=== PATIENT | male | born 1975 | race Caucasian/White ===

== ENCOUNTER → 2021-05-25 13:29 | Outpatient (BNVA) | payer OTHER, BC, SELFPAY | PROVIDERS: Family Provider Family Medicine; PCP Family Medicine; Visit Provider Nurse Practitioner | DX: M54.9 Dorsalgia, unspecified (principal) | CPT/HCPCS: 81000 ==

== ENCOUNTER 2025-05-07 12:17 | Emergency (ER) | payer OTHER, BC, SELFPAY ==
[2025-05-07 12:20] VITALS: BP 137/94; PULSE 63; RESP 18; TEMP 36.5; O2SAT 97; BMI 41.0
--- OUTSIDE RECORDS SUMMARY | 2025-05-07 12:22 | XMS_ITS | Encounter Summary ---
Author Organization [facility] Address [address] [place] [address] Care Team Providers Care Tool And Cutter Grinder Name Role Phone Kwabena Montaño MD Primary Care Provi jason Encounter Details Date Type Department Care Team (Late st Contact Info) Description 02/18/2017 Lab Requisition [facility] Services [address] [place] [address] Horacio Carcamo, [address] [address] Social History Tobacco Use Types Packs/Day Years Used Date Smoking Tobacco: Former Smokeless Tobacco: Never Alcohol Use Standard Drinks/Week Comments No 0 (1 standard drink = 0.6 oz pur e alcohol) Sex and Gender Information Value Date Recorded Sex Assigned at Not on file Legal Sex Male 3:34 PM CDT Gender Identity Not on file Sexual Orientation Not on file documented as of this encounter Plan of Treatment Not on file documented as of this encounter Procedures Procedure Name Priority Date/Time Associated Diagnosis Comments CBC WITH DIFFERENTIAL Routine 02/18/2017 6:42 AM CDT TSH Routine 02/18/2017 6:42 AM CDT HEMOGLOBIN A1C Routine 02/18/2017 6:42 AM CDT LIPID PANEL Routine 02/18/2017 6:42 AM CDT COMPREHENSIVE METABOLIC PANEL Routine 02/18/2017 6:42 AM CDT documented in this encounter Results * HEMOGLOBIN A1C (02/18/2017 6:42 AM CDT) [facility] HEMOGLOBIN A1C 5.8 4.0 - 6.0 % 02/18/2017 11:15 AM CDT [facility] EST. AVG GLUCOSE, A1C 120 mg/dL 02/18/2017 11:15 AM CDT [facility] Blood Collection / Unknown 02/18/2017 6:42 AM CDT 02/18/2017 9:40 AM CDT [facility] - 02/18/2017 11:15 AM CDT Test performed on FOODITY instrumentation using HPLC methodology Horacio Carcamo DO CHEMISTRY ORDERABLES Final R esult [facility] CLIA# [id number] [address] [place] [address] * (ABNORMAL) CBC WITH DIFFERENTIAL (02/18/2017 6:42 AM CDT) [facility] WBC 9.0 4.5 - 11.0 K/uL 02/18/2017 10:14 AM CDT [facility] RBC 4.97 4.60 - 6.20 M/uL 02/18/2017 10:14 AM CDT [facility] HEMOGLOBIN 15.2 14.0 - 18.0 g/dL 02/18/2017 10:14 AM CDT [facility] HEMATOCRIT 45.0 41.0 - 53.0 % 02/18/2017 10:14 AM CDT [facility] MCV 90.5 84.0 - 103.0 fL 02/18/2017 10:14 AM CDT [facility] MCH 30.6 27.0 - 34.0 pg 02/18/2017 10:14 AM [facility] MCHC 33.8 30.0 - 35.0 g/dL 02/18/2017 10:14 AM [facility] RDW 12.7 11.0 - 14.5 % 02/18/2017 10:14 AM [facility] RDW-STDEV 41.5 37.0 - 54.0 fL 02/18/2017 10:14 AM [facility] PLATELETS 207 140 - 440 K/uL 02/18/2017 10:14 AM [facility] MPV 11.1 8.9 - 12.8 fL 02/18/2017 10:14 AM [facility] NEUTROPHILS 49 42 - 75 % 02/18/2017 10:14 AM [facility] LYMPHOCYTES 38 24 - 44 % 02/18/2017 10:14 AM [facility] MONOCYTES 10 2 - 10 % 02/18/2017 10:14 AM [facility] EOSINOPHILS 3 0 - 7 % 02/18/2017 10:14 AM [facility] BASOPHILS 1 0 - 1 % 02/18/2017 10:14 AM [facility] IMMATURE GRANULOCYTES 1 0 - 2 % 02/18/2017 10:14 AM [facility] NEUTROPHIL ABSOLUTE 4.39 2.00 - 8.00 K/uL 02/18/2017 10:14 AM [facility] LYMPHOCYTE ABSOLUTE 3.41 1.20 - 4.00 K/uL 02/18/2017 10:14 AM [facility] [employer] [facility] MONOCYTE ABSOLUTE 0.86(H) 0.10 - 0.60 K/uL 02/18/2017 10:14 AM [facility] [employer] [facility] EOSINOPHIL ABSOLUTE 0.24 0.00 - 0.70 K/uL 02/18/2017 10:14 AM [facility] BASOPHILS ABSOLUTE 0.06 0.00 - 0.20 K/uL 02/18/2017 10:14 AM [facility] IMMATURE GRANULOCYTES ABSOLUTE 0.05 0.00 - 0.10 K/uL 02/18/2017 10:14 AM CDT [facility] Blood Collection / Unknown 02/18/2017 6:42 AM CDT 02/18/2017 9:40 AM CDT us Horacio Carcamo DO HEMATOLOGY ORDERABLES Final Result Performing Organization Address [facility] Co de Phone Number [facility] CLIA# [id number] [address] [place] [address] * TSH (02/18/2017 6:42 AM CDT) TSH 3.57 0.36 - 3.74 uIU/mL 02/18/2017 10:32 AM CDT [facility] Blood Collection / Unknown 02/18/2017 6:42 AM CDT 02/18/2017 9:40 AM CDT us Horacio Carcamo DO CHEMISTRY ORDERABLES Final R esult Performing Organization Address [facility] Co de Phone Number [facility] CLIA# [id number] [address] [place] [address] * (ABNORMAL) LIPID PANEL (02/18/2017 6:42 AM CDT) CHOLESTEROL 192 <200 mg/dL 02/18/2017 10:32 AM CDT [facility] TRIGLYCERIDE 313(H) <150 mg/dL 02/18/2017 10:32 AM T [facility] HDL 39(L) 40 - 59 mg/dL 02/18/2017 10:32 AM T [facility] LDL CALCULATED 90 <100 mg/dL 02/18/2017 10:32 AM CDT [facility] NON-HDL CHOLESTEROL 153(H) <130 mg/dL 02/18/2017 10:32 AM T [facility] Blood Collection / Unknown 02/18/2017 6:42 AM CDT 02/18/2017 9:40 AM CDT Narrative [facility] - 02/18/2017 10:32 AM CDT TOTAL CHOLESTEROL mg/dL Desirable <200 Borderline high 200-239 High >=240 TRIGLYCERIDES mg/dL Normal <150 Borderline high 150-199 High 200-499 Very high >=500 HDL CHOLESTEROL mg/dL Low <40 Normal 40-59 Desirable >=60 NON HDL CHOLESTEROL mg/dL Optimal <130 Near Optimal 130-159 Borderline High 160-189 Very High >=190 Calculated LDL mg/dL Optimal <100 Near Optimal 100-129 Borderline High 130-159 High 160-189 Very High >=190 ATPIII Guidelines Reference Ranges for Lipid Panels (NCEP/AMA) us Horacio Carcamo DO CHEMISTRY ORDERABLES Final R esult [facility] CLIA# [id number] [facility] [place] [address] * COMPREHENSIVE METABOLIC PANEL (02/18/2017 6:42 AM CDT) SODIUM 138 136 - 145 mmol/L 02/18/2017 10:32 AM CDT [facility] POTASSIUM 4.2 3.5 - 5.1 mmol/L 02/18/2017 10:32 AM T [facility] CHLORIDE 102 98 - 107 mmol/L 02/18/2017 10:32 AM T [facility] CO2 29 21 - 32 mmol/L 02/18/2017 10:32 AM CDT [facility] CALCIUM 8.7 8.4 - 10.1 mg/dL 02/18/2017 10:32 AM T [facility] BUN 16 7 - 18 mg/dL 02/18/2017 10:32 AM T [facility] CREATININE 1.28 0.70 - 1.30 mg/dL 02/18/2017 10:32 AM T [facility] GLUCOSE 106 74 - 106 mg/dL 02/18/2017 10:32 AM T [facility] TOTAL PROTEIN 7.6 6.4 - 8.2 g/dL 02/18/2017 10:32 AM [facility] ALBUMIN 4.0 3.4 - 5.0 g/dL 02/18/2017 10:32 AM [facility] BILIRUBIN TOTAL 0.5 0.2 - 1.0 mg/dL 02/18/2017 10:32 AM [facility] ALKALINE PHOSPHATASE 94 45 - 117 U/L 02/18/2017 10:32 AM [facility] AST 18 15 - 37 U/L 02/18/2017 10:32 AM [facility] ALT 33 13 - 61 U/L 02/18/2017 10:32 AM [facility] GFR >60 >=60 mL/min/1.7 3 sq meter 02/18/2017 10:32 AM [facility] Comment: eGFR has not been validated for use in the elderly (> 70 years of age), women, patients with serious co-morbid conditions, or persons with extremes of body size or muscle mass and should also be interpreted with caution in patients with acute kidney failure, dialysis dependent patients, patients reporting exceptional dietary intake (e.g. vegetarian diet, high protein diets, creatine supplementation), and patients with severe liver disease. Based on National Kidney Disease Education Program If patient is , please refer to the GFR result. GFR, >60 >=60 mL/min/1.7 3 sq meter 02/18/2017 10:32 AM [facility] ANION GAP 7 4 - 30 mmol/L 02/18/2017 10:32 AM [facility] Blood Collection / Unknown 02/18/2017 6:42 AM CDT 02/18/2017 9:40 AM CDT us Horacio Carcamo DO CHEMISTRY ORDERABLES Final R esult [facility] CLIA# [id number] [facility] [place] [address] documented in this encounter Visit Diagnoses Not on filedocumented in this encounter Care Teams Tool And Cutter Grinder Relationship Specialty Start Date End Date Kwabena Montaño MD PCP - General Internal Medicine 03/07/15 documented as of this encounter
--- OUTSIDE RECORDS SUMMARY | 2025-05-07 12:22 | XMS_ITS | Clinical Summary ---
Author Organization [facility] Address [address] [place] [address] Care Team Providers Care Suppression Crew Leader Name Role Phone Kwabena Montaño MD Primary Care Provi jason Allergies No known active allergies Medications metFORMIN (GLUCOPHAGE) 500 mg tablet Take 500 mg by mouth daily with breakfast. Active levothyroxine 137 mcg tablet Take 137 mcg by mouth daily upholsterer inside. Active omeprazole (PRILOSEC) 40 mg Capsule, Delayed Release(E.C.)Indica tions:Gastroesophag eal reflux disease without esophagitis Take 1 Capsule (40 mg) by mouth daily. 30 Capsule 1 5 Active atorvastatin (LIPITOR) 20 mg tabletIndications:M ixed hyperlipidemia Take 1 Tablet (20 mg) by mouth Daily LATE. 30 Tablet 5 5 Active Active Problems Problem Noted Date Diagnosed Date Morbid obesity with BMI of 40.0-44.9, adult 02/23 Impaired glucose tolerance 03/08/2015 Hypothyroidism due to acquired atrophy of thyroi d 03/08/2015 Essential hypertension 03/08/2015 Gastroesophageal reflux disease without esophagi tis 03/07/2015 Mixed hyperlipidemia 03/07/2015 Social History Tobacco Use Types Packs/Day Years Used Date Smoking Tobacco: Former Smokeless Tobacco: Never Tobacco Cessation:Counseling Given: Yes Alcohol Use Standard Drinks/Week Comments No 0 (1 standard drink = 0.6 oz pur e alcohol) Sex and Gender Information Value Date Recorded Sex Assigned at Not on file Legal Sex Male 3:34 PM CDT Gender Identity Not on file Sexual Orientation Not on file Last Filed Vital Signs Vital Sign Reading Time Taken Comments Blood Pressure 134/82 03/07/2015 3:19 PM CDT Pulse 84 03/07/2015 3:19 PM CDT Temperature - - Respiratory Rate - - Oxygen Saturation - - Inhaled Oxygen Concentration - - Weight 141.1 kg (311 lb) 03/07/2015 3:19 PM CDT Height 185.4 cm (6' 1 ) 03/07/2015 3:19 PM CDT Body Mass Index 41.03 03/07/2015 3:19 PM CDT Plan of Treatment Health Maintenance Due Date Last Done Comments DTAP/TDAP/TD VACCINES (1 - Tdap) 1994 HEPATITIS B VACCINES (1 of 3 - 19+ 3-dose series) 1994 COLORECTAL SCREENING 2020 Colorectal Cancer Screening 2020 FIT-DNA Q 3 years 2020 FIT/FOBT Q 1 year 2020 Flex Sig/CT Colonography Q 5 years 2020 Pre-Diabetes and Diabetes Screening 02/20/2023 02/21/2020, 02/18/2017, 02/01/2015 INFLUENZA VACCINE (#1) 2024 Preventative Visit- Commercial Completed 04/04/2025 Procedures Procedure Name Priority Date/Time Associated Diagnosis Comments HEMOGLOBIN A1C Routine 02/21/2020 7:49 AM CDT from Last 3 Months or Most Recently Relevant to Health Maintenance Results * (ABNORMAL) HEMOGLOBIN A1C (02/21/2020 7:49 AM CDT) HEMOGLOBIN A1C 6.0(H) <=5.6 % 02/22/2020 11:19 AM CDT [facility] [employer] [facility] EST. AVG GLUCOSE, A1C 126 mg/dL 02/22/2020 11:19 AM CDT [facility] Blood Collection / Unknown 02/21/2020 7:49 AM CDT 02/21/2020 4:12 PM CDT Narrative [facility] [employer] [facility] - 02/22/2020 11:19 AM CDT HGB A1C INTERPRETATION NORMAL: <5.7% PRE-DIABETES: 5.7 - 6.4% DIABETES: 6.5% OR GREATER Horacio Carcamo DO CHEMISTRY ORDERABLES Final R esult [facility] [address] [place], [place] [address] from Last 3 Months or Most Recently Relevant to Health Maintenance Insurance [employer] Care Teams Suppression Crew Leader Relationship Specialty Start Date End Date Kwabena Montaño MD PCP - General Internal Medicine 03/07/15
--- OUTSIDE RECORDS SUMMARY | 2025-05-07 12:23 | XMS_ITS | Clinical Summary ---
Author Organization [facility] Address [address] [place]: Epic Prelude ADT [place] [address] Care Team Providers Care Accounts Payable Specialist Name Role Phone Hari Clifton MD Primary Care Provider [phone] Allergies No known active allergies Medications levothyroxine 137 mcg tabletIndications:H ypothyroidism due to acquired atrophy of thyroid Take 1 Tablet (137 mcg) by mouth daily in the morning. 100 Tablet 3 5 Active atorvastatin (LIPITOR) 20 mg tabletIndications:M ixed hyperlipidemia Take 1 Tablet (20 mg) by mouth late in the day. 100 Tablet 3 5 Active cholecalciferol 1,250 mcg (50,000 unit) CapsuleIndications: Vitamin D deficiency Take 1 Capsule (50,000 Units) by mouth every 7 days. 12 Capsule 3 5 Active Active Problems Problem Noted Date Diagnosed Date Vitamin D deficiency 04/04/2025 Prediabetes 04/04/2025 Impaired glucose tolerance 03/08/2015 Hypothyroidism due to acquired atrophy of thyroi d 03/08/2015 Essential hypertension 03/08/2015 Gastroesophageal reflux disease without esophagi tis 03/07/2015 Mixed hyperlipidemia 03/07/2015 Resolved Problems Problem Noted Date Diagnosed Date Resolved Date Morbid obesity with BMI of 40.0-44.9, adult 03/08/2015 04/04/2025 Encounters Date Type Department Care Team Description 05/01/2025 Results Follow-Up [facility] [address] [phone] Hari Clifton MD COLON CANCER SCREEN, STOOL DNA 04/04/2025 1:00 PM METAL BALER Office Visit [address] [phone] Hari Clifton MD Annual physical exam (Primary Dx); Prediabetes; Mixed hyperlipidemia; Essential hypertension; Hypothyroidism due to acquired atrophy of thyroid; Vitamin D deficiency; Encounter for colorectal cancer screening 03/28/2025 Orders Only [address] [phone] Hari Clifton MD Vitamin D deficiency (Primary Dx); Hypothyroidism due to acquired atrophy of thyroid; Mixed hyperlipidemia from Last 3 Months Social History Tobacco Use Types Packs/Day Years Used Date Smoking Tobacco: Former Passive Smoke Exposure: Past Smokeless Tobacco: Never Tobacco Cessation:Counseling Given: Not Answered Alcohol Use Standard Drinks/Week Comments No 0 (1 standard drink = 0.6 oz pur e alcohol) Sex and Gender Information Value Date Recorded Sex Assigned at Not on file Legal Sex Male 9:13 AM METAL BALER Gender Identity Not on file Sexual Orientation Not on file Last Filed Vital Signs Vital Sign Reading Time Taken Comments Blood Pressure 132/82 04/04/2025 1:07 PM METAL BALER Pulse 74 04/04/2025 1:07 PM METAL BALER Temperature 36.9 C (98.5 F) 04/04/2025 1:07 PM METAL BALER Respiratory Rate 14 05/13/2024 3:00 PM METAL BALER Oxygen Saturation 99% 04/04/2025 1:07 PM METAL BALER Inhaled Oxygen Concentration - - Weight 140.1 kg (308 lb 12.8 oz) 04/04/2025 1:07 PM METAL BALER Height 188 cm (6' 2 ) 04/04/2025 1:07 PM METAL BALER Body Mass Index 39.65 04/04/2025 1:07 PM METAL BALER Plan of Treatment Upcoming Encounters Date Type Department Care Team (Late st Contact Info) Description 04/10/2026 1:40 PM METAL BALER Office Visit [address] [phone] Hari Clifton MD [address] [place] [phone] Health Maintenance Due Date Last Done Comments DTAP/TDAP/TD VACCINES (1 - Tdap) 1994 HEPATITIS B VACCINES (1 of 3 - 19+ 3-dose series) 1994 COLORECTAL SCREENING 2020 FIT/FOBT Q 1 year 2020 Flex Sig/CT Colonography Q 5 years 2020 INFLUENZA VACCINE (#1) 2024 COVID-19 Vaccine (3 2024-2 6 season) 2025 08/16/2020, 07/19/2020 Pre-Diabetes and Diabetes Screening 01/28/2028 01/27/2025, 08/11/2024, 02/04/2024, Additional history exists Colorectal Cancer Screening 04/25/2028 FIT-DNA Q 3 years 04/25/2028 04/25/2025 Preventative Visit- Commercial Completed 04/04/2025 Procedures Procedure Name Priority Date/Time Associated Diagnosis Comments COLON CANCER SCREEN, STOOL DNA Routine 04/25/2025 12:50 AM METAL BALER Encounter for colorectal cancer screening HEMOGLOBIN A1C Routine 01/27/2025 10:01 AM CDT Routine general medical examination at a health care facility from Last 3 Months or Most Recently Relevant to Health Maintenance Results * COLON CANCER SCREEN, STOOL DNA (04/25/2025 12:50 AM METAL BALER) COLOGUARD RESULT Negative Negative [facility] Comment: The Cologuard (TM) test was performed on this specimen. NEGATIVE TEST RESULT. A negative Cologuard result indicates a low likelihood that a colorectal cancer (CRC) or advanced adenoma (adenomatous polyps with more advanced pre-malignant features) is present. The chance that a person with a negative Cologuard test has a colorectal cancer is less than 1 in 1500 (negative predictive value >99.9%) or has an advanced adenoma is less than 5.3% (negative predictive value 94.7%). These data are based on a prospective cross-sectional study of 10,000 individuals at average risk for colorectal cancer who were screened with both Cologuard and colonoscopy. (Nehal Eason al, N Engl J Med 2014;370(14):0406-7802) The normal value (reference range) for this assay is negative. COLOGUARD RE-SCREENING RECOMMENDATION: Periodic colorectal cancer screening is an important part of preventive healthcare for asymptomatic individuals at average risk for colorectal cancer. Following a negative Cologuard result, the [place] Cancer Society and U.S. Multi-Society Task Force screening guidelines recommend a Cologuard re-screening interval of 3 years. References: [place] [employer] Guideline for Colorectal Cancer Screening: https://www.cancer.org/cancer/ebwlf-kjmhga-xtpugh/qstswljma-tsxssfixf-zvaafyh/ac s-rec ommendations.html.; Meliton OCONNOR, Charlotte VELAZCO, Amanda RodríguezK, Colorectal Cancer Screening: Recommendations for Physicians and Patients from the U.S. Multi-Society Task Force on Colorectal Cancer Screening , Am J Gastroenterology 2017; 112:5178-4851. TEST DESCRIPTION: Composite algorithmic analysis of stool DNA-biomarkers with hemoglobin immunoassay. Quantitative values of individual biomarkers are not reportable and are not associated with individual biomarker result reference ranges. Cologuard is intended for colorectal cancer screening of adults of either sex, 45 years or older, who are at average-risk for colorectal cancer (CRC). Cologuard has been approved for use by the U.S. FDA. The performance of Cologuard was established in a cross sectional study of average-risk adults aged 50-84. Cologuard performance in patients ages 45 to 49 years was estimated by sub-group analysis of near-age groups. Colonoscopies performed for a positive result may find as the most clinically significant lesion: colorectal cancer [4.0%], advanced adenoma (including sessile serrated polyps greater than or equal to 1cm diameter) [20%] or non- advanced adenoma [31%]; or no colorectal neoplasia [45%]. These estimates are derived from a prospective cross-sectional screening study of 10,000 individuals at average risk for colorectal cancer who were screened with both Cologuard and colonoscopy. (Nehal Franklin, N Engl J Med 2014;370(14):2293-0880.) Cologuard may produce a false negative or false positive result (no colorectal cancer or precancerous polyp present at colonoscopy follow up). A negative Cologuard test result does not guarantee the absence of CRC or advanced adenoma (pre-cancer). The current Cologuard screening interval is every 3 years. ([place] [employer] Society and U.S. Multi-Society Task Force). Cologuard performance data in a 10,000 patient pivotal study using colonoscopy as the reference method can be accessed at the following location: www.Gainspeed/results. Additional description of the Cologuard test process, warnings and precautions can be found at www.cologuard.com. Stool STOOL SPECIMEN / Unknown 04/25/2025 12:50 AM METAL BALER 04/27/2025 4:08 AM METAL BALER us Hari Clifton MD BODY FLUIDS AND STOOLS Final Res ult [employer] [facility] # [id number] [address], [address] [place] [address] * (ABNORMAL) HEMOGLOBIN A1C (01/27/2025 10:01 AM CDT) HEMOGLOBIN A1C 6.2(H) <5.7 % [facility] Comment: For someone without known diabetes, a hemoglobin A1c value between 5.7% and 6.4% is consistent with prediabetes and should be confirmed with a follow-up test. For someone with known diabetes, a value <7% indicates that their diabetes is well controlled. A1c targets should be individualized based on duration of diabetes, age, comorbid conditions, and other considerations. This assay result is consistent with an increased risk of diabetes. Currently, no consensus exists regarding use of hemoglobin A1c for diagnosis of diabetes for children. ESTIMATED AVERAGE GLUCOSE (MG/DL) 131 mg/dL [facility] ESTIMATED AVERAGE GLUCOSE (MMOL/L) 7.3 mmol/L [facility] Comment: Test Performed at: [facility] [address] [place] [phone] Evelia Adam MD Blood 01/27/2025 10:0 1 AM CDT 01/28/2025 1:09 AM CDT Horacio Carcamo DO CHEMISTRY ORDERABLES Final R [facility] Organization Address City/State/ZIP Co de Phone Number [facility] [phone] [facility] [address] [address], [place] [phone] from Last 3 Months or Most Recently Relevant to Health Maintenance Insurance [id number] [place] [id number] [facility] [place] [phone] [id number] [place] [id number] [facility] [employer] [id number] Member Subscriber Plan / Payer (Ef fective 2024-Present) Name:Medina Walden Relation to Subscriber:Self Name:Medina Walden Payer ID:[id number] (NAIC) Type:HMO Address: [address] [employer] Care Teams Accounts Payable Specialist Relationship Specialty Start Date End Date Hari Clifton MD [address] [place] [phone] PCP - General Family Practice 02/27/24
--- OUTSIDE RECORDS SUMMARY | 2025-05-07 12:23 | XMS_ITS | Encounter Summary ---
Author Organization [facility] Address [address] [place] [address] Care Team Providers Care Emergency Medical Tech Name Role Phone Hari Clifton MD Primary Care Provider [phone] Encounter Details Date Type Department Care Team (Late Contact Info) Description 05/01/2025 Results Follow-Up [address] [address] Hari Clifton MD [address] [place] [phone] COLON CANCER SCREEN, STOOL DNA Social History Tobacco Use Types Packs/Day Years Used Date Smoking Tobacco: Former Passive Smoke Exposure: Past Smokeless Tobacco: Never Alcohol Use Standard Drinks/Week Comments No 0 (1 standard drink = 0.6 oz pur e alcohol) Sex and Gender Information Value Date Recorded Sex Assigned at Not on file Legal Sex Male 9:13 AM CLIENT ACCOUNT ASSISTANT Gender Identity Not on file Sexual Orientation Not on file documented as of this encounter Plan of Treatment Upcoming Encounters Date Type Department Care Team (Late st Contact Info) Description 04/10/2026 1:40 PM CLIENT ACCOUNT ASSISTANT Office Visit [address] [address] Hari Clifton MD [address] [place] [phone] documented as of this encounter Visit Diagnoses Not on filedocumented in this encounter Care Teams Emergency Medical Tech Relationship Specialty Start Date End Date Hari Clifton MD [address] [place] [phone] PCP - General Family Practice 02/27/24 documented as of this encounter
--- OUTSIDE RECORDS SUMMARY | 2025-05-07 12:23 | XMS_ITS | Encounter Summary ---
Author Organization [facility] Address [address] [place] [address] Care Team Providers Care Regional Safety Manager Name Role Phone Kwabena Montaño MD Primary Care Provi jason Encounter Details Date Type Department Care Team (Late st Contact Info) Description 02/21/2020 Lab Requisition [facility] [address] [place] [address] Horacio Carcamo, [address] [address] Social History Tobacco Use Types [...] Associated Diagnosis Comments CBC WITH DIFFERENTIAL Routine 02/21/2020 7:49 AM CDT TSH Routine 02/21/2020 7:49 AM CDT HEMOGLOBIN A1C Routine 02/21/2020 7:49 AM CDT LIPID PANEL Routine 02/21/2020 7:49 AM CDT COMPREHENSIVE METABOLIC PANEL Routine 02/21/2020 7:49 AM CDT documented in this encounter Results * (ABNORMAL) HEMOGLOBIN A1C (02/21/2020 7:49 AM CDT) HEMOGLOBIN A1C 6.0(H) <=5.6 % 02/22/2020 11:19 AM CDT [facility] EST. AVG GLUCOSE, A1C 126 mg/dL 02/22/2020 11:19 AM CDT [facility] Blood Collection / Unknown 02/21/2020 7:49 AM CDT 02/21/2020 4:12 PM CDT Narrative [facility] - 02/22/2020 11:19 AM CDT HGB A1C INTERPRETATION NORMAL: <5.7% PRE-DIABETES: 5.7 - 6.4% DIABETES: 6.5% OR GREATER us Horacio Carcamo DO CHEMISTRY ORDERABLES Final R esult [facility] [address] [place] [address] * (ABNORMAL) CBC WITH DIFFERENTIAL (02/21/2020 7:49 AM CDT) WBC 10.1 4.5 - 11.0 K/uL 02/21/2020 4:28 PM CDT [facility] RBC 5.02 4.60 - 6.20 M/uL 02/21/2020 4:28 PM CDT [facility] HEMOGLOBIN 15.6 14.0 - 18.0 g/dL 02/21/2020 4:28 PM CDT [facility] HEMATOCRIT 47.6 41.0 - 53.0 % 02/21/2020 4:28 PM CDT [facility] MCV 94.8 84.0 - 103.0 fL 02/21/2020 4:28 PM CDT [facility] MCH 31.1 27.0 - 34.0 pg 02/21/2020 4:28 PM [facility] [employer] [facility] MCHC 32.8 30.0 - 35.0 g/dL 02/21/2020 4:28 PM [facility] [employer] [facility] RDW 12.7 11.0 - 14.5 % 02/21/2020 4:28 PM [facility] [employer] [facility] RDW-STDEV 44.0 37.0 - 54.0 fL 02/21/2020 4:28 PM [facility] [employer] [facility] PLATELETS 210 140 - 440 K/uL 02/21/2020 4:28 PM [facility] [employer] [facility] MPV 11.2 8.9 - 12.8 fL 02/21/2020 4:28 PM [facility] [employer] [facility] NEUTROPHILS 51 42 - 75 % 02/21/2020 4:28 PM [facility] LYMPHOCYTES 38 24 - 44 % 02/21/2020 4:28 PM [facility] [employer] [facility] MONOCYTES 8 2 - 10 % 02/21/2020 4:28 PM [facility] [employer] [facility] EOSINOPHILS 2 0 - 7 % 02/21/2020 4:28 PM [facility] BASOPHILS 1 0 - 1 % 02/21/2020 4:28 PM [facility] IMMATURE GRANULOCYTES 0 0 - 2 % 02/21/2020 4:28 PM [facility] NEUTROPHIL ABSOLUTE 5.18 2.00 - 8.00 K/uL 02/21/2020 4:28 PM [facility] LYMPHOCYTE ABSOLUTE 3.78 1.20 - 4.00 K/uL 02/21/2020 4:28 PM [facility] MONOCYTE ABSOLUTE 0.84(H) 0.10 - 0.60 K/uL 02/21/2020 4:28 PM [facility] [employer] [employer] [facility] EOSINOPHIL ABSOLUTE 0.22 0.00 - 0.70 K/uL 02/21/2020 4:28 PM [facility] [employer] [facility] BASOPHILS ABSOLUTE 0.05 0.00 - 0.20 K/uL 02/21/2020 4:28 PM [facility] IMMATURE GRANULOCYTES ABSOLUTE 0.02 0.00 - 0.10 K/uL 02/21/2020 4:28 PM CDT [facility] Blood Collection / Unknown 02/21/2020 7:49 AM CDT 02/21/2020 4:15 PM CDT Horacio Carcamo DO HEMATOLOGY ORDERABLES Final Result Performing Organization Address [facility]/ZIP Co de Phone Number [address] [address] * (ABNORMAL) TSH (02/21/2020 7:49 AM CDT) TSH 4.97(H) 0.27 - 4.20 uIU/mL 02/21/2020 4:47 PM CDT [facility] Blood Collection / Unknown 02/21/2020 7:49 AM CDT 02/21/2020 4:16 PM CDT Horacio Carcamo DO CHEMISTRY ORDERABLES Final R esult Performing Organization Address [facility] Co de Phone Number [address] [address] * (ABNORMAL) LIPID PANEL (02/21/2020 7:49 AM CDT) CHOLESTEROL 198 <200 mg/dL 02/21/2020 4:47 PM CDT [facility] TRIGLYCERIDE 224(H) <150 mg/dL 02/21/2020 4:47 PM T [facility] HDL 40 40 - 59 mg/dL 02/21/2020 4:47 PM CDT [facility] LDL CALCULATED 113(H) <100 mg/dL 02/21/2020 4:47 PM CDT [facility] NON-HDL CHOLESTEROL 158(H) <130 mg/dL 02/21/2020 4:47 PM CDT [facility] Blood Collection / Unknown 02/21/2020 7:49 AM CDT 02/21/2020 4:16 PM CDT Narrative [facility] - 02/21/2020 4:47 PM CDT TOTAL CHOLESTEROL mg/dL Desirable <200 Borderline high 200-239 High >=240 TRIGLYCERIDES mg/dL Normal <150 Borderline high 150-199 High 200-499 Very high >=500 HDL CHOLESTEROL mg/dL Low <40 Normal 40-59 Desirable >=60 NON HDL CHOLESTEROL mg/dL Optimal <130 Near Optimal 130-159 Borderline High 160-189 Very High >=190 CALCULATED LDL mg/dL LDL <70, OPTIMAL if have Atherosclerotic cardiovascular disease (ASCVD) or intermediate or higher (>7.5%) 10 year risk of ASCVD including most adults with diabetes. LDL <100, Optimal in adult patients with low (<7.5%) 10 year ASCVD risk LDL 100-160, Suboptimal LDL >160, High LDL >190, Very high ATPIII Guidelines Reference Ranges for Lipid Panels (NCEP/AMA) . us Horacio Carcamo DO CHEMISTRY ORDERABLES Final R esult [facility] [address] [place] [address] * (ABNORMAL) COMPREHENSIVE METABOLIC PANEL (02/21/2020 7:49 AM CDT) SODIUM 139 136 - 145 mmol/L 02/21/2020 4:47 PM CDT [facility] POTASSIUM 4.3 3.5 - 5.1 mmol/L 02/21/2020 4:47 PM CDT [facility] CHLORIDE 103 98 - 107 mmol/L 02/21/2020 4:47 PM T [facility] CO2 25 22 - 29 mmol/L 02/21/2020 4:47 PM CDT [facility] CALCIUM 9.3 8.6 - 10.0 mg/dL 02/21/2020 4:47 PM T [facility] BUN 13 6 - 20 mg/dL 02/21/2020 4:47 PM T [facility] CREATININE 1.23(H) 0.67 - 1.17 mg/dL 02/21/2020 4:47 PM [facility] GLUCOSE 117(H) 74 - 99 mg/dL 02/21/2020 4:47 PM [facility] TOTAL PROTEIN 7.6 6.4 - 8.3 g/dL 02/21/2020 4:47 PM [facility] ALBUMIN 4.5 3.5 - 5.2 g/dL 02/21/2020 4:47 PM [facility] BILIRUBIN TOTAL 0.3 0.2 - 1.0 mg/dL 02/21/2020 4:47 PM [facility] ALKALINE PHOSPHATASE 102 40 - 129 U/L 02/21/2020 4:47 PM [facility] AST 22 10 - 50 U/L 02/21/2020 4:47 PM [facility] ALT 37 <=50 U/L 02/21/2020 4:47 PM [facility] GFR >60 >=60 mL/min/1. 73 sq meter 02/21/2020 4:47 PM [facility] Comment: eGFR has not been validated for [...] to the GFR result. GFR, >60 >=60 mL/min/1. 73 sq meter 02/21/2020 4:47 PM [facility] ANION GAP 11 9 - 20 mmol/L 02/21/2020 4:47 PM [facility] Blood Collection / Unknown 02/21/2020 7:49 AM CDT 02/21/2020 4:16 PM CDT us Horacio Carcamo DO CHEMISTRY ORDERABLES Final R esult [facility] [address] [place] [address] documented in this encounter Visit Diagnoses Not on filedocumented in this encounter Care Teams Regional Safety Manager Relationship Specialty Start Date End Date Kwabena Montaño MD PCP - General Internal Medicine 03/07/15 documented as of this encounter
--- NOTE | 2025-05-07 13:01 | CTR_ITS ---
PROCEDURE INFORMATION: Exam: CT Abdomen And Pelvis Without Contrast Exam date and time: 05/07/2025 1:19 PM Age: 49 years old Clinical indication: Other: Mid back pain; Additional info: Flank pain TECHNIQUE: Imaging protocol: Computed tomography of the abdomen and pelvis without contrast. Radiation optimization: All CT scans at this facility use at least one of these dose optimization techniques: automated exposure control; mA and/or kV adjustment per patient size (includes targeted exams where dose is matched to clinical indication); or iterative reconstruction. COMPARISON: No relevant prior studies available. RADIATION DOSE METRICS: Total DLP (mGy-cm): 1267.35 FINDINGS: Lungs: Bibasilar atelectasis. Liver: Normal. No mass. Gallbladder and biliary ducts: Normal. No calcified stones. No ductal dilation. Pancreas: Normal. No ductal dilation. Spleen: Normal. No splenomegaly. Adrenal glands: Normal. No mass. Kidneys and ureters: No CT evidence of acute abnormality in the abdomen or pelvis. No evidence of obstructive uropathy. Stomach and bowel: Mild diverticulosis most prominent in the descending and sigmoid colon without evidence of diverticulitis. Appendix: No evidence of appendicitis. Intraperitoneal space: Unremarkable. No free air. No significant fluid collection. Vasculature: Unremarkable. No abdominal aortic aneurysm. Lymph nodes: Unremarkable. No enlarged lymph nodes. Urinary bladder: Unremarkable as visualized. Reproductive: Unremarkable as visualized. Bones/joints: Multilevel degenerative changes of the thoracolumbar spine. Severe degenerative disc disease L5-S1. Soft tissues: Unremarkable. CT/CT kidney stone 40131 IMPRESSION: 1. No CT evidence of acute abnormality in the abdomen or pelvis. No evidence of obstructive uropathy. 2. Mild diverticulosis most prominent in the descending and sigmoid colon without evidence of diverticulitis.
[2025-05-07 13:15] LABS: Glucose Urine UA Negative (Normal); Nitrate Urine Negative (Negative); Specific Gravity, Urine 1.003 (1.005-1.030)
[2025-05-07 13:49] LABS: Hematocrit 45.0 % (37-53); Hemoglobin 15.60 g/dL (11.27-16.99); Mean Corpuscular HGB Conc 34.7 g/dL (30-55); Mean Corpuscular Hemoglobin 30.8 pg (27-33); Mean Corpuscular Volume 88.9 fl (82-101); Nucleated Red Blood Cells % 0 %; Platelet Count 212 10^3/cmm (157-399); Red Blood Count 5.06 10^6/uL (3.85-5.65); White Blood Count 9.40 10^3/uL (3.29-11.43)
[2025-05-07 14:11] LABS: Alanine Aminotransferase 35 U/L (0-41); Albumin Level 4.7 g/dL (3.5-5.2); Alkaline Phosphatase 114 U/L (40-130); Anion Gap 14.3 (5-19); Aspartate Amino Transferase 24 U/L (0-40); Blood Urea Nitrogen 14 mg/dL (6-20); Calcium 9.6 mg/dL (8.5-10.5); Carbon Dioxide 25 mmol/L (22-29); Chloride 103 mmol/L (98-107); Globulin 2.8 g/dL (1.3-4.6); Glucose 115 mg/dL (65-115); Osmolality Calculated 287 mOsm/kg (285-295); Potassium 4.3 mmol/L (3.5-5.1); Sodium 138 mmol/L (136-145); Total Protein 7.5 g/dL (6.6-8.7)
--- NOTE | 2025-05-07 14:28 | ED_ITS ---
HPI - Back Pain/Injury 2 General: Chief Complaint: Back Pain/Injury Stated Complaint: Lower Back pain Time Seen by Provider: 05/07/25 14:25 History of Present Illness: 49-year-old man with history of kidney s tones who presents emergency room with low back pain. Says it is bilateral low back pain and he was seen at urgent care and they thought it might be kidney stone so they sent him to the emergency room.No fevers. No dysuria. He says pain feels deep but does hurt worse with movement. No saddle numbness, no fecal or urinary retention or incontinence, no focal motor deficit, no sensory deficit. Related Data Home Medications ?Medication ?Instructions ?Recorded ?Confirmed guaifenesin 1,200 mg tablet, 1,200 mg PO BID 07/08/22 07/08/22 extended release 12 hr (Mucinex) Previous Rx's ?Medication ?Instructions ?Recorded naproxen 500 mg tablet 500 mg PO BID #30 tabs 07/08 nirmatrelvir 300 mg (150 mg See Rx Instructions PO .CO MPLEX 07/08/22 x2)-ritonavir 100 mg tablet,dose #30 ea pack (Paxlovid) sulfamethoxazole 800 1 tab PO BID #14 tabs mg-trimethoprim 160 mg tablet (Bactrim DS) atorvastatin 10 mg tablet 10 mg PO DAILY #90 tabs 12/15 levothyroxine 137 mcg tablet 137 mcg PO DAILY #90 tabs 01/28/23 cyclobenzaprine 10 mg tablet 10 mg PO Q8H PRN muscle s pasm #20 05/07/25 tabs dexamethasone 6 mg tablet 6 mg PO DAILY 5 days #5 tabs 05/07/25 diclofenac sodium 50 mg 50 mg PO BID PRN pain #14 ta bs 05/07/25 tablet,delayed release hydrocodone 5 mg-acetaminophen 325 1 tab PO Q6H PRN pa in #20 tabs 05/07/25 mg tablet Allergies Allergy/AdvReac Type Severity Reaction Status Date / Time No Known Allergies Allergy Verified 05/07/25 12:24 Review of Systems 2 Narrative: Constitutional symptoms: Negative except as documented in HPI. Skin symptoms: Negative except as documented in HPI. Eye symptoms: Negative except as documented in HPI. ENMT symptoms: Negative except as documented in HPI. Respiratory symptoms: Negative except as documented in HPI. Cardiovascular symptoms: Negative except as documented in HPI. Gastrointestinal symptoms: Negative except as documented in HPI. Genitourinary symptoms: Negative except as documented in HPI. Musculoskeletal symptoms: Negative except as documented in HPI. Neurologic symptoms: Negative except as documented in HPI. Psychiatric symptoms: Negative except as documented in HPI. Endocrine symptoms: Negative except as documented in HPI. PFSH ED 2 PFSH: Medical History (Updated 05/07/25 @ 14:32 by Surekha Ozuna MD) COVID Otitis externa of right ear Social History Smoking and tobacco/nicotine status: current every day tobacco/nicotine user (chew) Physical Exam 2 Narrative: EXAM NARRATIVE: General: Alert, no acute distress. Head: Normocephalic Neck: Trachea midline Eye: Extraocular movements are intact. Ears, nose, mouth and throat: Oral mucosa moist Respiratory: Respirations are non-labored Musculoskeletal: Normal ROM Back: no step off, no focal tenderness, some paraspinal muscle tenderness Neurological: Alert and oriented, No focal neurological deficit observed. Psychiatric: Cooperative, appropriate mood & affect. Course 2 Vital Signs: Vital signs: Vital Signs Temperature 97.7 F 05/07/25 12:20 Pulse Rate 63 05/07/25 14:51 Respiratory Rate 18 05/07/25 12:20 Blood Pressure 137/90 05/07/25 14:51 Pulse Oximetry 99 05/07/25 14:51 Oxygen Delivery Me thod Room Air 05/07/25 12:20 MDM - Back Pain/Injury Medical Decision Making Medical decision making Patient's reason for coming to the emergency room: Low back pain Social determinants: Patient is employed and . I reviewed the patient's medical record. Patient was last seen in 2022 at this facility for COVID I reviewed the patient's current home meds Patient takes thyroid medication. Meds for hyperlipidemia. Alternate historians: None Differential diagnosis including but not limited to and based on the above HPI, review of systems and physical exam: In this patient with flank pain would have concern for: Ureterolithiasis. Urinary tract infection. Appendicitis. Cholecystitis. Musculoskeletal / back pain. Pyelonephritis. Orders placed to evaluate differential diagnosis based on the above differential, HPI and physical exam Lab Review: Laboratory results were reviewed and interpreted by myself the emergency room physician. No leukocytosis. No anemia. No renal failure CT of the abdomen pelvis without contrast: No acute abnormalities. Mild diverticulosis without diverticulitis. This was reviewed and interpreted by myself the emergency room physician. I also reviewed the radiology report. Reexamination: Patient remained stable. No increased work of breathing. No altered mental status. No focal motor deficits. Assessment and plan: Low back pain ?IM Decadron, IM Toradol and p.o. [place] - Discharged home - Discussed plan with patient. Answered any questions. - Evaluation and treatment of this problem were appropriate in the emergency setting. Labs 05/07/25 13:40 05/07/25 13:40 Radiology Impressions Abdomen/Pelvis CT 05/07/25 13:01 IMPRESSION: 1. No CT evidence of acute abnormality in the abdomen or pelvis. No evidence of obstructive uropathy. 2. Mild diverticulosis most prominent in the descending and sigmoid colon without evidence of diverticulitis. Laboratory Results WBC 9.40 10^3/uL (3.29-11.43) 05/07/25 13:40 RBC 5.06 10^6/uL (3.85-5.65) 05/07/25 13:40 Hgb 15.60 g/dL (11.27-16.99) 05/07/25 13:40 Hct 45.0 % (37-53) 05/07/25 13:40 MCV 88.9 fl (82-101) 05/07/25 13:40 MCH 30.8 pg (27-33) 05/07/25 13:40 MCHC 34.7 g/dL (30-55) 05/07/25 13:40 RDW 12.0 % (12.1-15.1) L 05/07/25 13:40 Plt Count 212 10^3/cmm (157-399) 05/07/25 13:40 MPV 10.6 fL (7.4-10.4) H 05/07/25 13:40 Neut % (Auto) 59.4 % 05/07/25 13:40 Lymph % (Auto) 29.3 % 05/07/25 13:40 [place] % (Auto) 9.5 % 05/07/25 13:40 Eos % (Auto) 1.2 % 05/07/25 13:40 Baso % (Auto) 0.3 % 05/07/25 13:40 Neut # (Auto) 5.59 10^3/uL (1.8-7.7) 05/07/25 13:40 Lymph # (Auto) 2.8 10^3/uL (0.8-4.8) 05/07/25 13:40 [place] # (Auto) 0.9 10^3/uL (0.2-0.9) 05/07/25 13:40 Eos # (Auto) 0.1 10^3/uL (0.0-0.8) 05/07/25 13:40 Baso # (Auto) 0.0 10^3/uL (0.0-0.1) 05/07/25 13:40 Nucleated RBC % (auto) 0 % 05/07/25 13:40 Nucleated RBCs # 0.0 /100WBC 05/07/25 13:40 Sodium 138 mmol/L (136-145) 05/07/25 13:40 Potassium 4.3 mmol/L (3.5-5.1) 05/07/25 13:40 Chloride 103 mmol/L (98-107) 05/07/25 13:40 Carbon Dioxide 25 mmol/L (22-29) 05/07/25 13:40 Anion Gap 14.3 (5-19) 05/07/25 13:40 BUN 14 mg/dL (6-20) 05/07/25 13:40 Creatinine 1.0 mg/dL (0.7-1.2) 05/07/25 13:40 GFR Calculation 79.4 mL/min (90-130) L 05/07/25 13:40 Glucose 115 mg/dL (65-115) 05/07/25 13:40 Calculated Osmolality 287 mOsm/kg (285-295) 05/07/25 13:40 Calcium 9.6 mg/dL (8.5-10.5) 05/07/25 13:40 Total Bilirubin 0.6 mg/dL (0.15-1.2) 05/07/25 13:40 AST 24 U/L (0-40) 05/07/25 13:40 ALT 35 U/L (0-41) 05/07/25 13:40 Alkaline Phosphatase 114 U/L (40-130) 05/07/25 13:40 Total Protein 7.5 g/dL (6.6-8.7) 05/07/25 13:40 Albumin 4.7 g/dL (3.5-5.2) 05/07/25 13:40 Globulin 2.8 g/dL (1.3-4.6) 05/07/25 13:40 Urine Color Yellow (Yellow) 05/07/25 13:05 Urine Appearance Clear (CLEAR) 05/07/25 13:05 Urine pH 6.0 (5-7) 05/07/25 13:05 Ur Specific [place] 1.003 (1.005-1.030) L 05/07/25 13:05 Urine Protein Negative (Negative) 05/07/25 13:05 Urine Glucose (UA) Negative (Normal) 05/07/25 13:05 Urine Ketones Negative (Negative) 05/07/25 13:05 Urine Blood Negative (Negative) 05/07/25 13:05 Urine Nitrate Negative (Negative) 05/07/25 13:05 Urine Bilirubin Negative (Negative) 05/07/25 13:05 Urine Urobilinogen 0.2 mg/dL (Negative) 05/07/25 13:05 Ur Leukocyte Esterase Negative (Negative) 05/07/25 13:05 Urine RBC 0-2 /hpf (0-2) 05/07/25 13:05 Urine WBC 0-5 /hpf (0-5) 05/07/25 13:05 Ur Squamous Epith Cells 0-5 /hpf (0-5) 05/07/25 13:05 Amorphous Sediment Not Reportable 05/07/25 13:05 Urine Bacteria None seen /hpf (NONE) 05/07/25 13:05 Hyaline Casts 0-4 /lpf H 05/07/25 13:05 All radiology interpretation(s) finalized by discharge Discharge Plan Discharge Patient Disposition: Home Clinical Impression: Strain of lumbar region Condition: Stable Prescriptions: New cyclobenzaprine 10 mg tablet 10 mg PO Q8H PRN (Reason: muscle spasm) Qty: 20 0RF hydrocodone-acetaminophen 5-325 mg tablet 1 tab PO Q6H PRN (Reason: pain) Qty: 20 0RF dexamethasone 6 mg tablet 6 mg PO DAILY 5 Days Qty: 5 0RF diclofenac sodium 50 mg tablet,delayed release (DR/EC) 50 mg PO BID PRN (Reason: pain) Qty: 14 0RF No Action Mucinex 1,200 mg tablet extended release 12hr 1,200 mg PO BID sulfamethoxazole-trimethoprim [Bactrim DS] 800-160 mg tablet 1 tab PO BID Qty: 14 0RF naproxen 500 mg tablet 500 mg PO BID Qty: 30 0RF Paxlovid 300 mg (150 mg x 2)-100 mg tablets,dose pack See Rx Instructions PO .COMPLEX Qty: 30 0RF Rx Instructions: take TWO 150 mg tablets of nirmatrelvir with ONE 100 mg tablet of ritonavir twice daily for 5 days PO atorvastatin 10 mg tablet 10 mg PO DAILY Qty: 90 3RF levothyroxine 137 mcg tablet 137 mcg PO DAILY Qty: 90 1RF Discharge Orders: Discharge ED (Routine); Ordered 05/07/25 Ordered By: Surekha Ozuna Referrals: Hari Clifton MD [Primary Care Provider, Family Practice] Horacio May DO [Family Provider, [facility]] Discharge Diet: Usual diet Discharge Activity: Increase activity as tolerated Patient Instructions: Acute Low Back Pain (ED), Opioid Safety, Pain Management, Patient Portal & Omar Instructions Activity Restrictions/Additional Instructions: Thank you for choosing [facility] for your healthcare needs today. You have been screened and evaluated and felt safe for discharge. Health conditions do change or evolve sometimes and as such it is important that you follow up with your Primary Doctor to be re checked, 3-5 days is a general good time frame for follow up. You are always welcome to return to the ED for re assessment if your symptoms are worsening or you have new concerns. (Please note that included in your discharge packet is information concerning opioid safety and pain management. This information is given to all patients who are discharged from the ER regardless of their discharge diagnosis or the medicines they usually take or are prescribed.) Print Language: Moroccan Coding Level of Care Code ED Criminal Investigative Agent for Odalys Childers
[2025-05-07] MEDS: HYDROcodone-acetaminophen 10-325 mg Tablet 1 TAB PO (14:37)
[2025-05-07 14:51] VITALS: BP 137/90; PULSE 63; O2SAT 99
== END 2025-05-07 14:52 | disposition home or self-care (01) ==
PROVIDERS: Emergency Provider Emergency Medicine; Family Provider Family Medicine; PCP Family Medicine
DX: S39.012A Strain of muscle, fascia and tendon of lower back, initial encounter (principal); F17.220 Nicotine dependence, chewing tobacco, uncomplicated; X58.XXXA Exposure to other specified factors, initial encounter
CPT/HCPCS: 36415; 74176; 80053; 81001; 85025; 96372; 99284; J1100; J1885; J9999